=== PATIENT | male | born 1955 | race African-American/Black ===

== ENCOUNTER 2023-01-30 20:17 | Emergency (ER) | payer BC, OTHER ==
[~2023-01-30] VITALS: Ht 185.4 cm; Wt 95.0 kg
[2023-01-30 20:20] VITALS: BP 146/98
[2023-01-30 20:57] LABS: BASOPHILS % 0.6 % (0.0-2.0); EOSINOPHILS % 7.5 % (0.0-5.0); HEMATOCRIT. 42.8 % (42.0-52.0); HEMOGLOBIN. 14.3 g/dL (14.0-18.0); LYMPHOCYTES % 23.1 % (20.0-50.0); MEAN CORPUSCULAR HEMOGLOBIN 29.2 pg (28.0-32.0); MEAN CORPUSCULAR HGB CONC 33.3 g/dL (31.0-37.0); MEAN CORPUSCULAR VOLUME 87.6 fL (80.0-94.0); MONOCYTES % 4.4 % (2.0-8.0); NEUTROPHILS % 64.4 % (40.0-76.0); PLATELET 256 x1000/uL (130-400); RED BLOOD CELL COUNT 4.88 mill/uL (4.7-6.1); RED CELL DISTRIBUTION WIDTH 13.6 % (11.6-14.6); WHITE BLOOD COUNT 5.8 x1000/uL (4.5-11.0)
[2023-01-30] MEDS ORDERED: PREDNISONE 20MG TABLET PO ONE (21:00)
[2023-01-30] MEDS ORDERED: IPRATROPIUM/ALBUTEROL 0.5-3(2.5)MG/3ML NEB HHN ONE (21:00)
[2023-01-30 21:07] LABS: CHLORIDE 109 mEq/L (98-107); INDEX HEMOLYSI 1 (1-3); INDEX ICTERIC 1 (1-4); INDEX LIPEMIC 1 (1-3); SODIUM 141 mEq/L (136-145)
[2023-01-30 21:16] LABS: CARBON DIOXIDE 32 mEq/L (21-32); CREATININE 1.3 mg/dL (0.6-1.3); GLUCOSE 120 mg/dL (70-105); UREA NITROGEN BLOOD 16 mg/dL (7-21)
[2023-01-30 21:17] LABS: ALANINE AMINOTRANSFERASE 47 IU/L (13-61); ALBUMIN 3.8 g/dL (3.4-5.0); ASPARTATE AMINOTRANSFERASE 32 IU/L (15-37); BILIRUBIN TOTAL 0.3 mg/dL (0.1-1.0); NT PRO B-TYPE NATRIURETIC PEP 15 pg/mL (5-125); PROTEIN TOTAL 8.1 g/dL (6.0-8.3); TROPONIN I HIGH SENSITIVITY 21 ng/L (<78)
[2023-01-30 21:26] VITALS: PULSE 83; RESP 18; O2SAT 99
[2023-01-30] MEDS ORDERED: ALBU6.7H15 INH (21:52)
[2023-01-30] MEDS ORDERED: P50 MT (21:52)
[2023-01-30] MEDS ORDERED: GUAI-450 MT (21:52)
[2023-01-30 22:03] VITALS: PULSE 88; RESP 18; TEMP 97.8
== END 2023-01-30 22:05 | disposition home or self-care (01) ==
LOC: ER 20:17
DX: J45.901 Unspecified asthma with (acute) exacerbation (principal); B34.9 Viral infection, unspecified; J44.9 Chronic obstructive pulmonary disease, unspecified
CPT/HCPCS: 80053; 83880; 85025; 84484; 36415; 71045; 94640; 93005; 99285; J7512; Z7610 ×3

== ENCOUNTER 2024-01-07 15:41 | Inpatient (IN) | payer BC, MEDICARE ==
[~2024-01-07] VITALS: Ht 185.4 cm; Wt 81.7 kg
[~2024-01-07 15:41] MED LIST: ALBU6.7H15 INH; GUAI-450 MT; P50 MT
[2024-01-07] MEDS ORDERED: LORAZEPAM 0.5MG TABLET PO PRN (16:30)
[2024-01-07 17:03] LABS: BASOPHILS % 0.3 % (0.0-2.0); EOSINOPHILS % 10.6 % (0.0-5.0); HEMOGLOBIN. 13.3 g/dL (14.0-18.0); LYMPHOCYTES % 23.2 % (20.0-50.0); MEAN CORPUSCULAR HEMOGLOBIN 27.1 pg (28.0-32.0); MEAN CORPUSCULAR HGB CONC 32.3 g/dL (31.0-37.0); MEAN CORPUSCULAR VOLUME 83.8 fL (80.0-94.0); MEAN PLATELET VOLUME 8.1 fl (7.4-10.4); MONOCYTES % 10.1 % (2.0-8.0); NEUTROPHILS % 55.8 % (40.0-76.0); PLATELET 254 x1000/uL (130-400); RED CELL DISTRIBUTION WIDTH 13.2 % (11.6-14.6); WHITE BLOOD COUNT 4.8 x1000/uL (4.5-11.0)
[2024-01-07 17:06] LABS: CHLORIDE 104 mEq/L (98-107); POTASSIUM 4.8 mEq/L (3.5-5.1); SODIUM 136 mEq/L (136-145)
[2024-01-07 17:07] LABS: CARBON DIOXIDE 29 mEq/L (21-32); INR 1.1; PROTHROMBIN TIME 11.7 sec (9.6-11.0)
[2024-01-07 17:08] LABS: CALCIUM 10.6 mg/dL (8.7-10.4)
[2024-01-07 17:12] LABS: CREATININE 1.2 mg/dL (0.6-1.3)
[2024-01-07 17:13] LABS: GLUCOSE 102 mg/dL (70-105); TROPONIN I HIGH SENSITIVITY 20 ng/L (3.0-53); UREA NITROGEN BLOOD 35 mg/dL (9-23)
[2024-01-07 17:17] LABS: THYROID STIMULATING HORMONE < 0.10 uIU/mL (0.55-4.78)
[2024-01-07 17:18] LABS: T4 FREE 5.26 ng/dL (0.89-1.76)
[2024-01-07] MEDS ORDERED: ACETAMINOPHEN 325MG TABLET PO PRN (19:30)
[2024-01-07] MEDS ORDERED: HYDRALAZINE 20MG/ML VIAL IV PRN (19:30)
[2024-01-07] MEDS ORDERED: ONDANSETRON HCL 4MG/2ML INJ IV PRN (19:30)
[2024-01-07] MEDS ORDERED: DEXTROSE 50% WATER 50ML SYRINGE IV PRN (19:30)
[2024-01-07] MEDS ORDERED: IPRATROPIUM BROMIDE (0.02%) 0.5MG/2.5ML NEB HHN PRN (20:30)
[2024-01-07] MEDS: SODIUM CHLORIDE 0.45% 1,000 ML IV SCH (20:48)
[2024-01-07] MEDS: BLOOD SUGAR DIAGNOSTIC STRIP TEST SCH (21:00)
[2024-01-07 22:16] VITALS: BP 152/80; PULSE 116; RESP 15; TEMP 36.7516
[2024-01-07 22:23] VITALS: BP 152/80; PULSE 114; RESP 15; TEMP 36.72516; O2SAT 91
[2024-01-07 22:34] LABS: CREATINE KINASE MB FRACTION 1.6 ng/mL (0.5-3.6)
[2024-01-07 22:35] LABS: CREATINE KINASE 57 IU/L (46-171)
[2024-01-07 22:36] LABS: PHOSPHORUS 4.5 mg/dL (2.5-4.9)
[2024-01-07 23:17] VITALS: BP 130/83; PULSE 114; RESP 26; TEMP 36.974
[2024-01-08] VITALS (9 sets, daily range): BP systolic 117–134; BP diastolic 76–85; PULSE 96–115; RESP 18–26; TEMP 36.44736–36.9474; O2SAT 94–99
[2024-01-08] MEDS: ATORVASTATIN CALCIUM 20MG TABLET PO SCH (00:17)
[2024-01-08] MEDS: APIXABAN 5 MG TABLET PO SCH (00:17)
[2024-01-08] MEDS: METHIMAZOLE 10MG TABLET PO SCH (00:18)
[2024-01-08] MEDS: ATENOLOL 25MG TABLET PO SCH ×2 (00:18→17:26)
[2024-01-08] MEDS: IPRATROPIUM BROMIDE (0.02%) 0.5MG/2.5ML NEB HHN SCH (00:31)
[2024-01-08 04:25] LABS: CLARITY URINE CLEAR (CLEAR); COLOR URINE YELLOW (YELLOW); GLUCOSE URINE NEGATIVE (NEGATIVE); KETONES URINE NEGATIVE (NEGATIVE); LEUKOCYTE ESTERASE URINE NEGATIVE (NEGATIVE); NITRITE URINE NEGATIVE (NEGATIVE); OCCULT BLOOD URINE NEGATIVE (NEGATIVE); PH URINE 5.5 (4.5-8.0); PROTEIN URINE NEGATIVE (NEGATIVE); SPECIFIC GRAVITY URINE 1.018 (1.005-1.030)
[2024-01-08 04:42] LABS: *AMPHETAMINES SCREEN URINE NEGATIVE (NEGATIVE); *BARBITURATES SCREEN URINE NEGATIVE (NEGATIVE); *BENZODIAZEPINES SCREEN URINE NEGATIVE (NEGATIVE); *COCAINE SCREEN URINE NEGATIVE (NEGATIVE); CANNABINOID URINE SCREEN NEGATIVE (NEGATIVE); ECSTASY MDMA SCREEN URINE NEGATIVE (NEGATIVE); METHADONE URINE SCREEN NEGATIVE (NEGATIVE); OPIATES URINE SCREEN NEGATIVE (NEGATIVE); PHENCYCLIDINE URINE SCREEN NEGATIVE (NEGATIVE)
[2024-01-08 07:56] LABS: CALCIUM 10.6 mg/dL (8.7-10.4); CARBON DIOXIDE 26 mEq/L (21-32); CHLORIDE 107 mEq/L (98-107); POTASSIUM 4.7 mEq/L (3.5-5.1); SODIUM 140 mEq/L (136-145)
[2024-01-08 08:02] LABS: GLUCOSE 100 mg/dL (70-105); TRIGLYCERIDE 75 mg/dL (0-150); UREA NITROGEN BLOOD 35 mg/dL (9-23)
[2024-01-08 08:03] LABS: CORTISOL 23.4 ucg/dL
[2024-01-08 08:03] LABS: LDL CHOLESTEROL 58 mg/dL (5-100)
[2024-01-08 08:04] LABS: CHOLESTEROL 106 mg/dL (<200); HDL CHOLESTEROL 34 mg/dL (>55)
[2024-01-08 08:05] LABS: ALANINE AMINOTRANSFERASE 68 IU/L (10-49); ALBUMIN 4.1 g/dL (3.2-4.8); ASPARTATE AMINOTRANSFERASE 44 IU/L (<34); BILIRUBIN DIRECT 0.2 mg/dL (<=3.0); BILIRUBIN TOTAL 0.6 mg/dL (0.1-1.0); PROTEIN TOTAL 7.2 g/dL (6.0-8.3)
[2024-01-08 08:08] LABS: VITAMIN B12 SERUM 838 pg/mL (211-911)
[2024-01-08 08:13] LABS: BASOPHILS % 0.4 % (0.0-2.0); EOSINOPHILS % 14.7 % (0.0-5.0); HEMATOCRIT. 40.8 % (42.0-52.0); HEMOGLOBIN. 13.1 g/dL (14.0-18.0); LYMPHOCYTES % 35.8 % (20.0-50.0); MEAN CORPUSCULAR HEMOGLOBIN 27.1 pg (28.0-32.0); MEAN CORPUSCULAR HGB CONC 32.2 g/dL (31.0-37.0); MEAN CORPUSCULAR VOLUME 84.3 fL (80.0-94.0); MEAN PLATELET VOLUME 8.1 fl (7.4-10.4); MONOCYTES % 11.9 % (2.0-8.0); NEUTROPHILS % 37.2 % (40.0-76.0); PLATELET 259 x1000/uL (130-400); RED BLOOD CELL COUNT 4.84 mill/uL (4.7-6.1); RED CELL DISTRIBUTION WIDTH 12.9 % (11.6-14.6)
[2024-01-08 08:16] LABS: CREATINE KINASE MB FRACTION 1.3 ng/mL (0.5-3.6)
[2024-01-08 08:31] LABS: HEPATITIS B SURFACE ANTIGEN NEGATIVE (Negative)
[2024-01-08 08:52] LABS: HEPATITIS C AB NON REACTIVE (Neg) (Negative)
[2024-01-08] MEDS: TRIAMTERENE/HCTZ 37.5/25MG TABLET PO SCH (09:28)
[2024-01-08] MEDS: GUAIFENESIN-DM 200MG-20MG/10ML UDC PO PRN (13:31)
[2024-01-09] VITALS (7 sets, daily range): BP systolic 105–135; BP diastolic 61–90; PULSE 97–110; RESP 14–22; TEMP 36.44736–37.00296; O2SAT 94–96
[2024-01-09] MEDS: ATENOLOL 25MG TABLET PO SCH (08:12)
[2024-01-09 09:49] LABS: BASOPHILS % 0.4 % (0.0-2.0); EOSINOPHILS % 13.5 % (0.0-5.0); HEMATOCRIT. 39.1 % (42.0-52.0); HEMOGLOBIN. 12.3 g/dL (14.0-18.0); LYMPHOCYTES % 27.1 % (20.0-50.0); MEAN CORPUSCULAR HEMOGLOBIN 26.6 pg (28.0-32.0); MEAN CORPUSCULAR HGB CONC 31.6 g/dL (31.0-37.0); MEAN CORPUSCULAR VOLUME 84.3 fL (80.0-94.0); MEAN PLATELET VOLUME 8.2 fl (7.4-10.4); MONOCYTES % 10.2 % (2.0-8.0); NEUTROPHILS % 48.8 % (40.0-76.0); PLATELET 222 x1000/uL (130-400); RED BLOOD CELL COUNT 4.63 mill/uL (4.7-6.1); WHITE BLOOD COUNT 5.6 x1000/uL (4.5-11.0)
[2024-01-09 10:05] LABS: CARBON DIOXIDE 25 mEq/L (21-32); CHLORIDE 105 mEq/L (98-107); POTASSIUM 4.3 mEq/L (3.5-5.1); SODIUM 137 mEq/L (136-145)
[2024-01-09 10:06] LABS: CALCIUM 10.2 mg/dL (8.7-10.4)
[2024-01-09 10:11] LABS: CREATININE 0.9 mg/dL (0.6-1.3); GLUCOSE 81 mg/dL (70-105); UREA NITROGEN BLOOD 28 mg/dL (9-23)
[2024-01-09 13:07] LABS: A/G RATIO 0.8 (0.7-1.7); ALPHA-1-GLOBULIN 0.4 g/dL (0.0-0.4); GAMMA GLOBULINS 1.4 g/dL (0.4-1.8); GLOBULIN TOTAL 3.8 g/dL (2.2-3.9); M-SPIKE Not Observed g/dL (Not Observed); TOTAL PROTEIN SERUM 6.8 g/dL (6.0-8.5)
[2024-01-09] MEDS ORDERED: FLUT16SP15 NS (17:37)
[2024-01-09] MEDS ORDERED: ALBU18HF2 PO (17:37)
[2024-01-09] MEDS ORDERED: APIX5TAB PO (17:37)
[2024-01-09] MEDS ORDERED: DYZ PO (17:37)
[2024-01-09] MEDS ORDERED: LATA2.5D14 EACHEYE (17:37)
[2024-01-09] MEDS ORDERED: ATOR20TA65 PO (17:37)
[2024-01-09] MEDS ORDERED: ATEN-42 PO ×2 (17:37→18:26)
[2024-01-09] MEDS ORDERED: CYCL30DR EACHEYE (17:37)
[2024-01-09] MEDS ORDERED: CHOL-36 PO (17:37)
[2024-01-09] MEDS ORDERED: METH-372 PO (18:26)
[2024-01-09] MEDS ORDERED: TOPUD PO (18:26)
[2024-01-09] MEDS ORDERED: ATROV INH (18:26)
[2024-01-09] MEDS ORDERED: FAMO-135 PO (19:36)
[2024-01-10 05:16] LABS: ANGIOTENSION CONVERTING ENZYME 87 U/L (14-82)
== END 2024-01-09 19:20 | disposition home or self-care (01) | DRG 645 ==
LOC: ER 15:41 → 5WST 17:49 → EDBEDREQ 17:52 → EDBEDREQTM 17:52 → 5WST 18:40 → 3WST 22:51
PROVIDERS: ADMIT Internal Medicine; ATTEND Internal Medicine
DX: E05.90 Thyrotoxicosis, unspecified without thyrotoxic crisis or storm (principal); E83.52 Hypercalcemia; E86.0 Dehydration; R73.9 Hyperglycemia, unspecified; D64.9 Anemia, unspecified; E78.00 Pure hypercholesterolemia, unspecified; I10 Essential (primary) hypertension; R00.2 Palpitations; Z79.899 Other long term (current) drug therapy; Z87.891 Personal history of nicotine dependence; Z79.01 Long term (current) use of anticoagulants; Z86.711 Personal history of pulmonary embolism; Z81.8 Family history of other mental and behavioral disorders; Z82.49 Family history of ischemic heart disease and other diseases of the circulatory system; Z82.5 Family history of asthma and other chronic lower respiratory diseases
CPT/HCPCS: 36415; 71045; 80048; 80061; 80076; 80305; 81003; 82164; 82533; 82550; 82553; 82607; 82962; 83036; 83520; 83605; 83735; 83880; 83970; 84100; 84145; 84155; 84165; 84439; 84443; 84481; 84484; 85025; 86705; 87340; 93005; 93306; 93970; 94640; 99291